=== PATIENT | male | born 2000 | race Caucasian/White ===

== ENCOUNTER 2024-08-08 08:38 | Outpatient (CLI) | payer MEDICAID ==
[2024-08-08 09:01] LABS: BASOPHILS # (AUTO) 0.1 X10'3 (0-0.2); BASOPHILS % (AUTO) 0.5 % (0-1); EOSINOPHILS # (AUTO) 0.2 X10'3 (0-0.9); EOSINOPHILS % (AUTO) 2.2 % (0-6); HEMATOCRIT 51.2 % (42.0-52.0); HEMOGLOBIN 17.4 g/dl (14.0-17.9); LYMPHOCYTES # (AUTO) 2.6 X10'3 (1.1-4.8); LYMPHOCYTES % (AUTO) 23.9 % (21-51); MEAN CORPUSCULAR VOLUME 88.2 FL (78-98); MEAN PLATELET VOLUME 7.6 FL (7.4-10.4); MONOCYTES % (AUTO) 9.4 % (2-12); PLATELET COUNT 288 X10'3 (140-440); RED BLOOD COUNT 5.81 X10'6 (4.70-6.10); WHITE BLOOD COUNT 10.9 X10'3 (4.5-11.0)
[2024-08-08 09:28] LABS: ALANINE AMINOTRANSFERASE 165 U/L (12-78); ALBUMIN 4.2 G/DL (3.4-5.0); ALBUMIN/GLOBULIN RATIO 1.1 (1.1-1.5); ALKALINE PHOSPHATASE 97 IU/L (46-116); ANION GAP 4 (8-16); ASPARTATE AMINO TRANSFERASE 53 U/L (10-37); BILIRUBIN,TOTAL 0.7 MG/DL (0.1-1.0); BLOOD UREA NITROGEN 17 MG/DL (7-18); BUN/CREATININE RATIO 11.5 (10.0-20.0); CALCIUM 9.4 MG/DL (8.5-10.1); CHLORIDE 107 MMOL/L (99-107); CREATININE 1.48 MG/DL (0.60-1.10); GLUCOSE 87 MG/DL (70-104); POTASSIUM 4.1 MMOL/L (3.5-5.1); SODIUM 143 MMOL/L (135-145); TOTAL CARBON DIOXIDE 32.3 MMOL/L (24-32); eGFR 59 ML/MIN
== END 2024-08-08 23:59 | disposition home or self-care (01) ==
LOC: LAB 08:38
PROVIDERS: ATTEND Registered Nurse
DX: F31.2 Bipolar disorder, current episode manic severe with psychotic features (principal); F31.60 Bipolar disorder, current episode mixed, unspecified
CPT/HCPCS: 36415; 80053; 80178; 85025

== ENCOUNTER 2024-08-17 13:25 | Emergency (ER) | payer MEDICAID ==
[~2024-08-17] VITALS: Ht 188 cm; Wt 121.4 kg
[2024-08-17] MEDS ORDERED: AMOX500C2 PO (14:39)
[2024-08-17] MEDS ORDERED: PRED50TA PO (14:39)
[2024-08-17 14:44] VITALS: BP 122/68; PULSE 68; RESP 16; TEMP 97.9; O2SAT 97
== END 2024-08-17 14:44 | disposition home or self-care (01) ==
LOC: ER 13:26
DX: J02.9 Acute pharyngitis, unspecified (principal)
CPT/HCPCS: 99283

== ENCOUNTER 2024-10-07 23:13 | Emergency (ER) | payer MEDICAID ==
[~2024-10-07] VITALS: Ht 190.5 cm; Wt 114.0 kg
[~2024-10-07 23:13] MED LIST: PRED50TA PO
[2024-10-07] MEDS ORDERED: levetiracetam inj 1,000 MG in normal saline 100ml IV soln 100 ML IV ONE (23:30)
[2024-10-08] MEDS: levetiracetam-NACL1000mg/100ml 100 ML IV ONE (00:03)
[2024-10-08 00:11] LABS: BASOPHILS # (AUTO) 0.1 X10'3 (0-0.2); BASOPHILS % (AUTO) 0.9 % (0-1); EOSINOPHILS # (AUTO) 0.3 X10'3 (0-0.9); HEMATOCRIT 44.7 % (42.0-52.0); HEMOGLOBIN 15.5 g/dl (14.0-17.9); LYMPHOCYTES # (AUTO) 2.3 X10'3 (1.1-4.8); LYMPHOCYTES % (AUTO) 25.3 % (21-51); MEAN CORPUSCULAR HEMOGLOBIN 30.3 PG (27.0-31.0); MEAN CORPUSCULAR HGB CONC 34.6 g/dL (33.0-36.5); MEAN CORPUSCULAR VOLUME 87.3 FL (78-98); MEAN PLATELET VOLUME 7.7 FL (7.4-10.4); MONOCYTES # (AUTO) 0.8 X10'3 (0-0.9); MONOCYTES % (AUTO) 9.4 % (2-12); NEUTROPHILS # (AUTO) 5.5 X10'3 (1.8-7.7); NEUTROPHILS % (AUTO) 61.4 % (42-75); PLATELET COUNT 259 X10'3 (140-440); RED BLOOD COUNT 5.12 X10'6 (4.70-6.10); RED CELL DISTRIBUTION WIDTH 13.4 % (11.5-14.5)
[2024-10-08 00:29] LABS: ALBUMIN 4.1 G/DL (3.4-5.0); BLOOD UREA NITROGEN 15 MG/DL (7-18); CALCIUM 8.9 MG/DL (8.5-10.1); CREATININE 1.25 MG/DL (0.60-1.10); GLUCOSE 101 MG/DL (70-104); POTASSIUM 3.5 MMOL/L (3.5-5.1); SODIUM 140 MMOL/L (135-145); TOTAL CARBON DIOXIDE 23.7 MMOL/L (24-32); eCRCL 111 ML/MIN; eGFR 72 ML/MIN
[2024-10-08 00:31] LABS: ANION GAP 10 (8-16); CHLORIDE 106 MMOL/L (99-107)
[2024-10-08 01:10] VITALS: BP 124/63; PULSE 69; RESP 16; TEMP 98.6; O2SAT 96
== END 2024-10-08 01:12 | disposition home or self-care (01) ==
LOC: ER 23:14
DX: G40.909 Epilepsy, unspecified, not intractable, without status epilepticus (principal); M54.2 Cervicalgia; Z88.8 Allergy status to other drugs, medicaments and biological substances
CPT/HCPCS: 36415; 70450; 72125; 80048; 84484; 85025; 93005; 96374; 99285; J1953

== ENCOUNTER 2025-01-03 10:45 | Emergency (ER) | payer MEDICAID ==
[~2025-01-03] VITALS: Ht 190.5 cm; Wt 91.0 kg
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
--- NOTE | 2025-01-03 11:27 | RADIOLOGY REPORT ---
CLINICAL INDICATION: FOOT PAIN TECHNIQUE: DI FOOT, COMPLETE (3VW MIN) Comparison: None FINDINGS/IMPRESSION: : There is no evidence of acute fracture or dislocation. Soft tissues are unremarkable.
--- NOTE | 2025-01-03 11:33 | RADIOLOGY REPORT ---
LEFT RIBS : 3 view(s) were obtained HISTORY: RIB PAIN COMPARISON: None. FINDINGS: Left ribs: No rib fracture is demonstrated. Bones are in anatomic alignment. Visualized lungs are cl ear. IMPRESSION: No acute left rib fractures. No acute cardio pulmonary findings
--- NOTE | 2025-01-03 12:55 | RADIOLOGY REPORT ---
CLINICAL INDICATION: left ankle pain TECHNIQUE: DI ANKLE,LIMITED (AP/LAT) Comparison: None FINDINGS/IMPRESSION: : There is no evidence of acute fracture . Slight widening of the medial clear space which could be due to deltoid ligament injury. Overlying soft tissues are intact.
[2025-01-03 12:59] VITALS: TEMP 98.2
[2025-01-03 14:27] VITALS: BP 138/75; PULSE 74; RESP 14; O2SAT 97
== END 2025-01-03 14:27 | disposition home or self-care (01) ==
LOC: ER 10:46
DX: S93.402A Sprain of unspecified ligament of left ankle, initial encounter (principal); S20.212A Contusion of left front wall of thorax, initial encounter; V03.99XA Pedestrian with other conveyance injured in collision with car, pick-up truck or van, unspecified whether traffic or nontraffic accident, initial encounter; Y93.89 Activity, other specified; Y92.89 Other specified places as the place of occurrence of the external cause; Y99.8 Other external cause status
CPT/HCPCS: 71100; 73600; 73630; 99284